=== PATIENT | male | born 1965 | race Caucasian/White ===

== ENCOUNTER → 2019-09-12 | Outpatient (CLI) | payer BC ==
--- NOTE | 2019-09-12 16:14 | RADIOLOGY REPORT (SQ) ---
EXAM DESCRIPTION: U/S RETROPERITON (RENAL/AORTA) IMAGES COMPLETED DATE/TIME: 09/12/2019 3:43 pm REASON FOR STUDY: R31.0 GROSS HEMATURIA R31.0 GROSS HEMATURIA COMPARISON: None. TECHNIQUE: Dynamic and static grayscale images acquired of the kidneys and bladder and recorded on P ACS. Additional selected color Doppler and spectral images recorded. LIMITATIONS: None. FINDINGS: RIGHT KIDNEY: Normal size, 9.5 cm. No solid mass. There is a 9 mm cyst. 2 calculi are s een. Each measures 7 mm in largest diameter. LEFT KIDNEY: Normal size, 10.6 cm. No solid mass. There appear to be several small echogenic foci throughout the kidney BLADDER: No masses. Ureteral jets are not seen. OTHER FINDINGS: No other significant finding. IMPRESSION: Nephrolithiasis. There is no hydronephrosis. TECHNICAL DOCUMENTATION: JOB ID: [id number] 2010 [email or web address]- All Rights Reserved Reading location - IP/workstation name: [email or web address]
== END ==
LOC: RAD 15:09
PROVIDERS: ATTEND Urology
DX: N20.0 Calculus of kidney (principal); N28.1 Cyst of kidney, acquired; R31.0 Gross hematuria
CPT/HCPCS: 76770